=== PATIENT | female | born 1970 | race Caucasian/White ===

== ENCOUNTER 2020-03-22 16:16 | Emergency (ER) | payer MEDICAID, OTHER ==
[~2020-03-22] VITALS: Ht 167.6 cm; Wt 81.6 kg
[~2020-03-22 16:16] MED LIST: ASCO1500 PO; FISH OIL OMEGA1 EACH PO; KRIL1CAP19 PO; LEVO150T5 PO; MV W1TAB PO; VENL150C PO; VITA150T PO; [UNRECOGNIZED DRUG - REMARK] PO
[2020-03-22] MEDS ORDERED: LIDOCAINE-MPF 1%, 5ML ONE (16:36)
[2020-03-22] MEDS ORDERED: DIPH,PERTUSS(ACELL),TET VAC/PF 0.5 ML IM-VACC ONE ×2 (16:36→17:00)
[2020-03-22] MEDS ORDERED: BUPIVACAINE 0.25% ONE (16:37)
[2020-03-22] MEDS ORDERED: LIDOCAINE-MPF 1%, 5ML INFIL ONE (17:00)
[2020-03-22] MEDS ORDERED: BUPIVACAINE/PF 0.25% INFIL ONE (17:00)
[2020-03-22] MEDS ORDERED: BUSP10TA PO (17:15)
[2020-03-22] MEDS ORDERED: CALC0.25 PO (17:15)
[2020-03-22] MEDS ORDERED: LEVO25TA4 PO (17:15)
[2020-03-22] MEDS ORDERED: CITA40TA12 PO (17:15)
--- NOTE | 2020-03-22 17:15 | NUR ---
PT ENDORSED TO BREAK RN.
[2020-03-22] MEDS ORDERED: DOCU100C33 PO (17:16)
--- NOTE | 2020-03-22 17:17 | NUR ---
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 XR NOW AT BS
--- NOTE | 2020-03-22 17:50 | NUR ---
DAIANA MONTES AT BS FOR SUTURING.
[2020-03-22] MEDS ORDERED: NEOSPORIN OINT. PKT 1 PACKET ONE (18:03)
[2020-03-22 18:16] VITALS: BP 125/59
== END 2020-03-22 18:18 | disposition home or self-care (01) ==
LOC: ED 18:08
DX: S61.012A Laceration without foreign body of left thumb without damage to nail, initial encounter (principal); G89.11 Acute pain due to trauma; M79.642 Pain in left hand; X58.XXXA Exposure to other specified factors, initial encounter; Y93.89 Activity, other specified; Y92.098 Other place in other non-institutional residence as the place of occurrence of the external cause; Y99.8 Other external cause status
CPT/HCPCS: 12041; 90471; 90715; 99284